=== PATIENT | female | born 1995 ===

== ENCOUNTER 2018-05-02 08:50 | Emergency (ER) | payer MEDICAID ==
[2018-05-02 08:58] VITALS: O2SAT 97
--- NOTE | 2018-05-02 09:02 | C.PDOC ---
History Of Present Illness 22 year old female w/ hx of asthma p/w sob. Pt notes her sob started 3 days ago, feels exactly like her previous asthma exacerbations. She notes no previous admissions for asthma. only previous admission. No fever,chills or night sweats. No body aches. No nasal congestion. She notes her symptoms started after she smoked some weed which triggered her asthma. She denies any other drug use. She notes trying to use her home nebulizer with only mild improvement. She denies any chest pain or back pain. She notes that she mispoke earlier and only notes sob. No other complaints. Time Seen by Provider: 05/02/18 09:02 Chief Complaint (Nursing): Shortness Of Breath Past Medical History Vital Signs: Last Vital Signs Temp 97.6 F 05/02/18 08:53 Pulse 97 H 05/02/18 08:53 Resp 25 H 05/02/18 08:53 BP 133/92 H 05/02/18 08:53 Pulse Ox 97 05/02/18 08:53 - Medical History PMH: Asthma Family History: States: Unknown Family Hx - Social History Hx Alcohol Use: No Hx Substance Use: Yes - Immunization History Hx Tetanus Toxoid Vaccination: No Hx Influenza Vaccination: No Hx Pneumococcal Vaccination: No Review Of Systems Constitutional: Negative for: Fever, Chills Eyes: Negative for: Pain, Vision Change ENT: Negative for: Ear Pain, Ear Discharge Cardiovascular: Negative for: Chest Pain, Palpitations Respiratory: Positive for: Cough, Shortness of Breath. Negative for: Pleuritic Pain, Sputum Gastrointestinal: Negative for: Nausea, Vomiting, Abdominal Pain Genitourinary: Negative for: Dysuria, Frequency, Hematuria, Vaginal Discharge Musculoskeletal: Negative for: Neck Pain, Shoulder Pain, Back Pain Neurological: Negative for: Weakness, Numbness Psych: Negative for: Anxiety, Depression, Suicidal ideation Physical Exam - Physical Exam Appears: Well, Non-toxic, No Acute Distress Skin: Normal Color, Warm Head: Atraumatic, Normacephalic Eye(s): bilateral: Normal Inspection Nose: Normal, No Flaring, No Discharge Oral Mucosa: Moist Tongue: Normal Appearing Lips: Normal Appearing Gingiva: Normal Appearing Throat: Normal, No Erythema, No Exudate Neck: Normal, Normal ROM, Supple, Other (no meningeal signs) Chest: Symmetrical Cardiovascular: Rhythm Regular Respiratory: No Accessory Muscle Use, No Rales, No Rhonchi, No Stridor, Wheezing (mild, at bases) Gastrointestinal/Abdominal: Normal Exam Back: Normal Inspection, No CVA Tenderness Extremity: Normal ROM, No Tenderness Neurological/Psych: Oriented x3, Normal Speech, Normal Cognition Gait: Steady ED Course And Treatment O2 Sat by Pulse Oximetry: 97 Medical Decision Making Medical Decision Makin yr old F p/w mild asthma exacerbation. No URI symptoms. No CP. No leg swelling. No abdominal pain. No GI or complaints. Mild wheezing on exam, spea charly in full sentences. No fever. Pending rx and reassessment. 1025 lungs much improved, pt remains in NAD notes subjective improvement. Speaking in fulls sentences. Pt requesting one more treatment for the road prior to d/c, will oblige. Clear for d/c home with return indications and followup Disposition - Disposition Referrals: [facility] [Outside] [employer] [facility] [Outside] [facility] [Outside] Andrade Cesar MD [Staff Provider] - Disposition: HOME/ ROUTINE Disposition Time: 10:24 Condition: GOOD Additional Instructions: STOP SMOKING WEED IT CAN TRIGGER ASTHMA. RETURN IF NOT IMPROVED Prescriptions: Albuterol HFA [Ventolin HFA 90 mcg/actuation (8 g)] 1 puff IH Q4H PRN #1 inhaler PRN Reason: Wheezing predniSONE [Prednisone] 40 mg PO Q24H 5 Days #10 tab Instructions: Avoiding Asthma Triggers, Asthma, Adult (DC) Forms: [employer] (Namibian) Print Language: COMORAN - Clinical Impression Clinical Impression: Asthma exacerbation
[2018-05-02] MEDS ORDERED: Albuterol-Ipratrop 3 mg / 0.5 (3 ml) UD INH STA ×3 (09:06→10:23)
[2018-05-02] MEDS ORDERED: Albuterol-Ipratrop 3 mg / 0.5 (3 ml) UD ONE ×2 (09:24→10:29)
[2018-05-02 10:57] VITALS: BP 124/84; PULSE 89; RESP 20; TEMP 98
== END 2018-05-02 10:57 | disposition home or self-care (01) ==
LOC: C.ER 08:50
DX: J45.901 Unspecified asthma with (acute) exacerbation (principal)